=== PATIENT | male | born 1970 | race Caucasian/White ===

== ENCOUNTER 2018-06-15 11:58 | Emergency (ER) | payer MEDICAID, SELFPAY ==
[2018-06-15 12:00] VITALS: BP 134/83; PULSE 69; RESP 17; TEMP 36.9; O2SAT 99; BMI 27.3
--- NOTE | 2018-06-15 13:01 | ED.VISSUMM ---
- ER Visit Summary Date of Service: 06/15/18 Chief Complaint: Multiple abscesses History of Present Illness: The patient is a 48 M who says he has multiple abscesses in the right axilla. He denies any drainage coming from these areas. He also complains of some blisters on his feet. He has had abscesses on his back but never in his axilla. He denies any fevers. He states they have been there for about 3 days. They are tender to touch. Physical Examination: Vital signs reviewed. Skin exam reveals multiple abscesses in the right axilla. Some of them are between 0.5 cm and 1.5 cm in width. No erythema. They are tender to touch. Test Results: None performed Emergency Department Course and Treatment: The patient had incision and drainage. Area was cleansed with chlorhexidine. Lidocaine was used to anesthetize multiple areas of the right axilla. Multiple cruciate incisions were made over 5 abscesses of the right axilla. Each were probed with hemostats. There was good return of purulent material from each 1. He will be placed on Bactrim. He will need to follow-up with his PCP and surgery for further evaluation Treatment Plan: [] Disposition: Discharge Impression: Complex abscess, right axilla Incision and drainage of multiple abscesses by ED physician This note was generated with [employer] dictation software. It may contain incorrect words, spelling, and punctuation that were not noted in review of the chart prior to signing ED Disposition - Plan for ED Patient: Chief Complaint: Abscess Referrals: Care Physician,No Primary [Primary Care Provider] -
--- NOTE | 2018-06-15 13:03 | ED.DEP ---
ED Disposition - Plan for ED Patient: Disposition: Home or Assisted Living Chief Complaint: Abscess Instructions: ED Abscess IandD Prescriptions: Smz/Tmp Ds [Bactrim Ds] 1 tab PO BID #20 tab Referrals: Care Physician,No Primary [Primary Care Provider] -
== END 2018-06-15 13:34 | disposition home or self-care (01) ==
PROVIDERS: Emergency Provider Emergency Medicine
DX: L02.411 Cutaneous abscess of right axilla (principal); S90.822A Blister (nonthermal), left foot, initial encounter; S90.821A Blister (nonthermal), right foot, initial encounter; X58.XXXA Exposure to other specified factors, initial encounter; Y93.9 Activity, unspecified; Y92.9 Unspecified place or not applicable; Z72.0 Tobacco use
CPT/HCPCS: 10061; 10060; 99282

== ENCOUNTER 2023-11-13 14:42 | Emergency (ER) | payer MEDICAID, SELFPAY ==
[2023-11-13 14:42] VITALS: BP 175/80; PULSE 103; RESP 16; TEMP 36.9; O2SAT 94; BMI 24.0
--- NOTE | 2023-11-13 15:14 | EDS_ITS ---
HPI History of Present Illness Chief Complaint: Overdose Narrative Narrative: 53-year-old male presenting after overdose. Patient states he typically uses methamphetamine but he could not get any today so he decided to get some fentanyl. He injected this. Patient overdosed and received Narcan in the field x 2. He is awake and alert currently and has no complaints. PFSH PFS Home Medications sulfamethoxazole 800 mg-trimethoprim 160 mg tablet 1 tab PO BID #20 tabs 06/15/18 [Rx Last Taken Unknown] Allergy/AdvReac Type Severity Reaction Status Date / Time No Known Allergies Allergy Verified 06/15/18 11:59 Social History Smoking Status: Current every day smoker tobacco type: cigarettes ROS ROS ED Constitutional Constitutional ED: Denies chills or fever(s) Eyes Eyes: Denies change in vision or diplopia ENT ENT ED: Denies rhinorrhea or sore throat Cardiovascular Cardiovascular: Denies chest pain or palpitations Respiratory/Chest Respiratory/Chest: Denies cough or dyspnea Gastrointestinal Gastrointestinal: Denies abdominal pain, constipation, nausea or vomiting Genitourinary Genitourinary ED: Denies dysuria Musculoskeletal Musculoskeletal: Denies arthralgias or back pain Integumentary Denies abscess or Abrasions Neurologic Neurologic: Denies headache(s) EXAM Physical Exam Const Vital Signs: 11/13/23 14:42 Temperature 98.4 F Temperature Source Temporal Pulse Rate 103 H Respiratory Rate 16 Blood Pressure 175/80 H Blood Pressure Mean 111 Pulse Ox 94 Oxygen Delivery Method Room Air Positive well nourished General Appearance ED: NAD; Negative for pallor HEENT Reports moist mucous membranes atraumatic Eyes PERRL and EOMs intact bilaterally Chest Wall inspection of chest normal and palpation of chest normal Resp normal respiratory effort and clear to auscultation bilaterally Auscultation: Negative for rales, rhonchi or wheezes Cardio regular rate and regular rhythm Neuro oriented x3 and CN's II-XII intact bilaterally Sensorium / Orientation: alert Psych mental status grossly normal and thought process normal Skin General Skin Exam: Negative for jaundice or pallor MDM MDM MDM Narrative Medical decision making narrative: 53-year-old male presenting after fentanyl overdose. He is alert and awake. He received Narcan 4 mg intranasal and 1 mg IV prior to arrival. Vital signs are stable and he is afebrile. Physical exam is normal. Lungs clear to auscultation. Heart regular rate and rhythm. O2 sats 94% on room air. Afebrile. Patient states he feels at his baseline. Will monitor to make sure he is needing more Narcan. Patient states he typically does methamphetamine. He states he does not need any detox. Patient observed until 1600. He still doing well. No believe he needs lab work or imaging. Patient will be discharged home. Impression: 1. Fentanyl overdose Discharge Plan Triage Chief Complaint: Overdose ED Provider: Humza Gee Dx/Rx/DC Orders Instructions: ED Overdose, Opiate Prescriptions: No Action sulfamethoxazole-trimethoprim 1 TABLET tablet 1 tab PO BID Qty: 20 0RF Primary Care Provider: Care Physician,No Primary Referrals: Leora Pineda [facility] [Provider Group] - 3-5 Days Care Physician,No Primary [Primary Care Provider] - Disposition Disposition: Home, Self Care Capacity Legal [employer]eron[employer] Reflex Medical hold order details:: IF a medical hold is selected below, a suggested order for a MEDICAL HOLD will reflex upon signing the document. Next of kin: [place] law dictates a PRIORITY LIST for identifying legal decision-maker/legal next of kin in the following order (LNOK): 1st: The patient?s legal guardian, if any 2nd: The patient's spouse (if status is questionable, consult Risk Management) 3rd: The patient?s adult child(shannan) (majority, if multiple children) 4th: The patient?s parents 5th: The patient?s adult siblings (majority, if multiple children siblings)
== END 2023-11-13 16:07 | disposition home or self-care (01) ==
PROVIDERS: Emergency Provider Student in an Organized Health Care Education/Training Program; Visit Provider Student in an Organized Health Care Education/Training Program
DX: T40.414A Poisoning by fentanyl or fentanyl analogs, undetermined, initial encounter (principal); F17.210 Nicotine dependence, cigarettes, uncomplicated; Z79.899 Other long term (current) drug therapy
CPT/HCPCS: 99282